=== PATIENT | male | born 1965 | race Caucasian/White ===

== ENCOUNTER → 2016-07-25 | Outpatient (REF) | payer OTHER | LOC: M LABDRAWP 13:10 | PROVIDERS: ATTEND Family Medicine | DX: E03.9 Hypothyroidism, unspecified (principal); E55.9 Vitamin D deficiency, unspecified ==

== ENCOUNTER → 2016-07-25 | Outpatient (REF) | payer OTHER ==
[2016-07-25 14:04] LABS: ALBUMIN 4.4 GM/DL (3.2-5.2); ALBUMIN/GLOBULIN RATIO 1.47 (1.00-1.93); ALKALINE PHOSPHATASE 70 U/L (45-117); ALT/SGPT 46 U/L (12-78); ANION GAP 10 MEQ/L (8-16); AST/SGOT 19 U/L (15-37); BILIRUBIN,TOTAL 0.3 MG/DL (0.2-1.0); BLOOD UREA NITROGEN 17 MG/DL (7-18); CALCIUM LEVEL 9.9 MG/DL (8.5-10.1); CARBON DIOXIDE LEVEL 27 MEQ/L (21-32); CHLORIDE LEVEL 104 MEQ/L (98-107); CREATININE FOR GFR 0.91 MG/DL (0.70-1.30); GLOMERULAR FILTRATION RATE > 60.0 (>60); GLUCOSE, FASTING 84 MG/DL (70-105); POTASSIUM SERUM 4.8 MEQ/L (3.5-5.1); SODIUM LEVEL 141 MEQ/L (136-145); TOTAL PROTEIN 7.4 GM/DL (6.4-8.2)
[2016-07-27 00:06] LABS: %CD3+CD4+CD8+ 0.9 % (Not Estab.); %CD3+CD4+CD8- 27.8 % (Not Estab.); %CD3+CD4-CD8+ 41.9 % (Not Estab.); %CD3+CD4-CD8- 1.2 % (Not Estab.); ABS CD3+CD4+CD8+ 24 /uL (Not Estab.); ABS CD3+CD4+CD8- 751 /uL (Not Estab.); ABS CD3+CD4-CD8+ 1131 /uL (Not Estab.); ABS CD3+CD4-CD8- 32 /uL (Not Estab.); CD4/CD8 NYSDOH RATIO 0.66 (Not Estab.); Eosinophils 2 % (.); HCT 45.3 % (37.5-51.0); HGB 15.4 g/dL (12.6-17.7); Monocytes 12 % (.); Neutrophils 39 % (.)
== END ==
LOC: M SFHCPLAZ 10:48
PROVIDERS: ATTEND Internal Medicine Infectious Disease
DX: B20 Human immunodeficiency virus [HIV] disease (principal)

== ENCOUNTER → 2016-12-28 | Outpatient (REF) | payer BC | LOC: M SFHCPLAZ 11:46 | PROVIDERS: ATTEND Internal Medicine Infectious Disease | DX: B20 Human immunodeficiency virus [HIV] disease (principal); E03.9 Hypothyroidism, unspecified; K90.0 Celiac disease ==

== ENCOUNTER → 2016-12-29 | Outpatient (REF) | payer BC ==
[2016-12-29 16:55] LABS: FOLATE > 24.0 NG/ML; VITAMIN B12 LEVEL 450 PG/ML
[2016-12-29 17:15] LABS: ALBUMIN 4.3 GM/DL (3.2-5.2); ALBUMIN/GLOBULIN RATIO 1.48 (1.00-1.93); ALKALINE PHOSPHATASE 61 U/L (45-117); ALT/SGPT 36 U/L (12-78); ANION GAP 7 MEQ/L (8-16); AST/SGOT 11 U/L (15-37); BILIRUBIN,TOTAL 0.3 MG/DL (0.2-1.0); BLOOD UREA NITROGEN 14 MG/DL (7-18); CALCIUM LEVEL 9.3 MG/DL (8.5-10.1); CARBON DIOXIDE LEVEL 27 MEQ/L (21-32); CHLORIDE LEVEL 107 MEQ/L (98-107); CREATININE FOR GFR 1.01 MG/DL (0.70-1.30); FREE T4 1.12 NG/DL (0.76-1.46); GLOMERULAR FILTRATION RATE > 60.0 (>60); GLUCOSE, FASTING 96 MG/DL (70-105); PERCENT SATURATION 17.3 % (19.7-37.4); POTASSIUM SERUM 4.3 MEQ/L (3.5-5.1); SODIUM LEVEL 141 MEQ/L (136-145); TOTAL IRON BINDING CAPACITY 352 UG/DL (250-450); TOTAL PROTEIN 7.2 GM/DL (6.4-8.2)
[2017-01-01 00:08] LABS: %CD3+CD4+CD8- 34.4 % (Not Estab.); %CD3+CD4-CD8+ 33.9 % (Not Estab.); %CD3+CD4-CD8- 1.5 % (Not Estab.); ABS CD3+CD4+CD8+ 19 /uL (Not Estab.); ABS CD3+CD4+CD8- 654 /uL (Not Estab.); ABS CD3+CD4-CD8+ 644 /uL (Not Estab.); ABS CD3+CD4-CD8- 29 /uL (Not Estab.); CD4/CD8 NYSDOH RATIO 1.01 (Not Estab.); Eosinophils 2 % (.); HCT 45.7 % (37.5-51.0); HGB 14.7 g/dL (12.6-17.7); Monocytes 10 % (.); Neutrophils 40 % (.)
== END ==
LOC: M SFHCPLAZ 14:58
PROVIDERS: ATTEND Internal Medicine Infectious Disease
DX: B20 Human immunodeficiency virus [HIV] disease (principal); E03.9 Hypothyroidism, unspecified; K90.0 Celiac disease

== ENCOUNTER → 2017-07-05 | Outpatient (REF) | payer BC ==
[2017-07-05 12:57] LABS: TOTAL 25(OH) VITAMIN D 33.8 NG/ML (30.0-100.0)
[2017-07-05 13:16] LABS: ALBUMIN 4.2 GM/DL (3.2-5.2); ALKALINE PHOSPHATASE 66 U/L (45-117); ALT/SGPT 50 U/L (12-78); ANION GAP 4 MEQ/L (8-16); AST/SGOT 22 U/L (7-37); BILIRUBIN,TOTAL 0.4 MG/DL (0.2-1.0); BLOOD UREA NITROGEN 16 MG/DL (7-18); CALCIUM LEVEL 9.2 MG/DL (8.5-10.1); CARBON DIOXIDE LEVEL 29 MEQ/L (21-32); CHLORIDE LEVEL 105 MEQ/L (98-107); CREATININE FOR GFR 0.83 MG/DL (0.70-1.30); FREE T4 0.73 NG/DL (0.76-1.46); GLOMERULAR FILTRATION RATE > 60.0 (>56); GLUCOSE, FASTING 80 MG/DL (70-105); POTASSIUM SERUM 4.4 MEQ/L (3.5-5.1); SODIUM LEVEL 138 MEQ/L (136-145)
[2017-07-05 14:14] LABS: CHLAMYDIA DNA AMPLIFICATION NEGATIVE (NEGATIVE); GC DNA AMPLIFICATION NEGATIVE (NEGATIVE)
[2017-07-07 14:09] LABS: QUANTIFERON GOLD TB Negative (Negative); TB Test (QFT) Antigen 0.08 IU/mL (.); TB Test (QFT) Antigen Minus Ni <0.01 IU/mL (.); TB Test (QFT) Mitogen >10.00 IU/mL (.); TB Test (QFT) Nil 0.09 IU/mL (.)
[2017-07-10 00:07] LABS: % CD8 Pos Lymph 37.7 % (12.0-35.5); %CD4 Pos Lymphs 32.4 % (30.8-58.5); ABS Eosinophils 0.1 x10E3/uL (0.0-0.4); ABS Lymphs 2.2 x10E3/uL (0.7-3.1); ABS Monocytes 0.5 x10E3/uL (0.1-0.9); ABS Neutophils 2.2 x10E3/uL (1.4-7.0); Abs CD4 Helper 713 /uL (359-1519); Abs CD8 Suppres 829 /uL (109-897); CD4/CD8 Ratio 0.86 (0.92-3.72); Eosinophils 2 % (Not Estab.); HCT 43.6 % (37.5-51.0); HGB 15.5 g/dL (13.0-17.7); HIV-1 RNA PCR QUANT 2 LC550285 30 copies/mL (.); HIV-1 RNA PCR QUANT 3 LC550285 1.477 (.); Immature Grans 0 % (Not Estab.); Lymphocytes 44 % (Not Estab.); MCH 32.9 pg (26.6-33.0); MCHC 35.6 g/dL (31.5-35.7); MCV 93 fL (79-97); Monocytes 10 % (Not Estab.); Neutrophils 44 % (Not Estab.); Platelets 236 x10E3/uL (150-379); RBC 4.71 x10E6/uL (4.14-5.80); RDW 13.9 % (12.3-15.4)
== END ==
LOC: M SFHCPLAZ 09:06
DX: B20 Human immunodeficiency virus [HIV] disease (principal); E03.9 Hypothyroidism, unspecified; E55.9 Vitamin D deficiency, unspecified
CPT/HCPCS: 84443

== ENCOUNTER → 2018-01-17 | Outpatient (REF) | payer BC ==
[2018-01-17 13:55] LABS: ALBUMIN 4.4 GM/DL (3.2-5.2); ALBUMIN/GLOBULIN RATIO 1.33 (1.00-1.93); ALKALINE PHOSPHATASE 72 U/L (45-117); ALT/SGPT 102 U/L (12-78); ANION GAP 8 MEQ/L (8-16); AST/SGOT 40 U/L (7-37); BILIRUBIN,TOTAL 0.3 MG/DL (0.2-1.0); BLOOD UREA NITROGEN 17 MG/DL (7-18); CALCIUM LEVEL 9.7 MG/DL (8.5-10.1); CARBON DIOXIDE LEVEL 29 MEQ/L (21-32); CHLORIDE LEVEL 104 MEQ/L (98-107); CREATININE FOR GFR 0.88 MG/DL (0.70-1.30); FREE T4 0.73 NG/DL (0.76-1.46); GLOMERULAR FILTRATION RATE > 60.0 (>56); GLUCOSE, FASTING 85 MG/DL (70-100); POTASSIUM SERUM 4.8 MEQ/L (3.5-5.1); SODIUM LEVEL 141 MEQ/L (136-145); TOTAL PROTEIN 7.7 GM/DL (6.4-8.2)
== END ==
LOC: M SFHCPLAZ 11:04
DX: B20 Human immunodeficiency virus [HIV] disease (principal); E03.9 Hypothyroidism, unspecified

== ENCOUNTER → 2018-07-30 | Outpatient (REF) | payer BC ==
[2018-07-30 14:36] LABS: APPEARANCE, URINE CLEAR (CLEAR); BACTERIA, URINE AUTO NEGATIVE (NEGATIVE); BILIRUBIN, URINE AUTO NEGATIVE (NEGATIVE); BLOOD, URINE BLOOD NEGATIVE (NEGATIVE); COLOR, URINE YELLOW (YELLOW); GLUCOSE, URINE (UA) AUTO NEGATIVE (NEGATIVE); KETONE, URINE AUTO NEGATIVE (NEGATIVE); LEUKOCYTE ESTERASE, URINE AUTO NEGATIVE (NEGATIVE); NITRITE, URINE AUTO NEGATIVE (NEGATIVE); PROTEIN, URINE AUTO NEGATIVE (NEGATIVE); RBC, URINE AUTO 2 /HPF (0-3); SPECIFIC GRAVITY URINE AUTO 1.019 (1.002-1.035); SQUAMOUS EPITHELIAL CELL UR AU 0 /HPF (0-6); UROBILINOGEN, URINE AUTO 0.2 mg/dL (0.0-2.0); WBC, URINE AUTO 0 /HPF (0-3)
[2018-07-30 14:58] LABS: ALBUMIN 3.9 GM/DL (3.2-5.2); ALT/SGPT 59 U/L (12-78); BILIRUBIN,TOTAL 0.3 MG/DL (0.2-1.0); BLOOD UREA NITROGEN 21 MG/DL (7-18); CALCIUM LEVEL 9.1 MG/DL (8.5-10.1); CARBON DIOXIDE LEVEL 26 MEQ/L (21-32); CHLORIDE LEVEL 110 MEQ/L (98-107); CREATININE FOR GFR 0.87 MG/DL (0.70-1.30); FREE T4 0.77 NG/DL (0.76-1.46); GLOMERULAR FILTRATION RATE > 60.0 (>56); GLUCOSE, FASTING 66 MG/DL (70-100); SODIUM LEVEL 143 MEQ/L (136-145); TOTAL PROTEIN 6.3 GM/DL (6.4-8.2)
[2018-07-30 16:11] LABS: CHLAMYDIA DNA AMPLIFICATION NEGATIVE (NEGATIVE); GC DNA AMPLIFICATION NEGATIVE (NEGATIVE)
[2018-07-31 14:53] LABS: % CD8 Pos Lymph 38.2 % (12.0-35.5); ABS Eosinophils 0.1 x10E3/uL (0.0-0.4); ABS Lymphs 2.6 x10E3/uL (0.7-3.1); ABS Monocytes 0.6 x10E3/uL (0.1-0.9); ABS Neutophils 1.5 x10E3/uL (1.4-7.0); Abs CD4 Helper 780 /uL (359-1519); Abs CD8 Suppres 993 /uL (109-897); CD4/CD8 Ratio 0.79 (0.92-3.72); Eosinophils 3 % (Not Estab.); HCT 42.1 % (37.5-51.0); HGB 14.1 g/dL (13.0-17.7); Immature Grans 0 % (Not Estab.); Lymphocytes 53 % (Not Estab.); MCH 32.1 pg (26.6-33.0); MCHC 33.5 g/dL (31.5-35.7); MCV 96 fL (79-97); Monocytes 12 % (Not Estab.); Neutrophils 31 % (Not Estab.); Platelets 231 x10E3/uL (150-379); RBC 4.39 x10E6/uL (4.14-5.80); RDW 14.2 % (12.3-15.4); WBC 4.9 x10E3/uL (3.4-10.8)
[2018-08-02 00:07] LABS: HIV-1 RNA PCR QUANT 2 LC550285 <20 copies/mL (.)
== END ==
LOC: M SFHCPLAZ 10:28
PROVIDERS: ATTEND Internal Medicine Infectious Disease
DX: B20 Human immunodeficiency virus [HIV] disease (principal); E03.9 Hypothyroidism, unspecified

== ENCOUNTER → 2018-12-03 | Outpatient (REF) | payer BC ==
[2018-12-03 13:04] LABS: ALBUMIN 4.2 GM/DL (3.2-5.2); ALT/SGPT 65 U/L (12-78); BILIRUBIN,TOTAL 0.3 MG/DL (0.2-1.0); BLOOD UREA NITROGEN 12 MG/DL (7-18); CALCIUM LEVEL 9.8 MG/DL (8.5-10.1); CARBON DIOXIDE LEVEL 28 MEQ/L (21-32); CHLORIDE LEVEL 108 MEQ/L (98-107); CHOLESTEROL LEVEL 272 MG/DL (<200); CHOLESTEROL RISK RATIO 6.974 (<5); CREATININE FOR GFR 0.96 MG/DL (0.70-1.30); FREE T4 0.77 NG/DL (0.76-1.46); GLOMERULAR FILTRATION RATE > 60.0 (>56); GLUCOSE, FASTING 92 MG/DL (70-100); HDL CHOLESTEROL 39 MG/DL (>40); LDL CHOLESTEROL 178 MG/DL (<100); NON-HDL-C 233 MG/DL; POTASSIUM SERUM 4.8 MEQ/L (3.5-5.1); SODIUM LEVEL 142 MEQ/L (136-145); TRIGLYCERIDES LEVEL 277 MG/DL (<150)
[2018-12-06 00:09] LABS: % CD8 Pos Lymph 36.7 % (12.0-35.5); ABS Eosinophils 0.2 x10E3/uL (0.0-0.4); ABS Lymphs 2.4 x10E3/uL (0.7-3.1); ABS Monocytes 0.5 x10E3/uL (0.1-0.9); ABS Neutophils 1.7 x10E3/uL (1.4-7.0); Abs CD4 Helper 744 /uL (359-1519); Abs CD8 Suppres 881 /uL (109-897); CD4/CD8 Ratio 0.84 (0.92-3.72); Eosinophils 4 % (Not Estab.); HCT 43.9 % (37.5-51.0); HIV-1 RNA PCR QUANT 2 LC550285 <20 copies/mL (.); Immature Grans 0 % (Not Estab.); Lymphocytes 50 % (Not Estab.); MCH 32.1 pg (26.6-33.0); MCHC 34.2 g/dL (31.5-35.7); MCV 94 fL (79-97); Monocytes 10 % (Not Estab.); Neutrophils 35 % (Not Estab.); Platelets 205 x10E3/uL (150-450); RBC 4.67 x10E6/uL (4.14-5.80); RDW 14.4 % (12.3-15.4); WBC 4.7 x10E3/uL (3.4-10.8)
== END ==
LOC: M SFHCPLAZ 09:18
PROVIDERS: ATTEND Internal Medicine Infectious Disease
DX: B20 Human immunodeficiency virus [HIV] disease (principal); E03.9 Hypothyroidism, unspecified; E78.00 Pure hypercholesterolemia, unspecified

== ENCOUNTER → 2019-04-10 | Outpatient (REF) | payer BC ==
[2019-04-10 13:19] LABS: ALT/SGPT 47 U/L (12-78); BILIRUBIN,TOTAL 0.3 MG/DL (0.2-1.0); BLOOD UREA NITROGEN 16 MG/DL (7-18); CALCIUM LEVEL 9.1 MG/DL (8.5-10.1); CARBON DIOXIDE LEVEL 26 MEQ/L (21-32); CHLORIDE LEVEL 112 MEQ/L (98-107); CHOLESTEROL LEVEL 157 MG/DL (<200); CHOLESTEROL RISK RATIO 3.738 (<5); CREATININE FOR GFR 0.89 MG/DL (0.70-1.30); FREE T4 0.95 NG/DL (0.76-1.46); GLOMERULAR FILTRATION RATE > 60.0 (>56); GLUCOSE, FASTING 91 MG/DL (70-100); HDL CHOLESTEROL 42 MG/DL (>40); IMMUNOGLOBULIN E 6.5 IU/ML (<100); IMMUNOGLOBULIN G 764 MG/DL (681-1648); LDL CHOLESTEROL 85 MG/DL (<100); NON-HDL-C 115 MG/DL; POTASSIUM SERUM 5.2 MEQ/L (3.5-5.1); SODIUM LEVEL 142 MEQ/L (136-145); TOTAL 25(OH) VITAMIN D 33.7 NG/ML (30.0-100.0); TOTAL PROTEIN 6.8 GM/DL (6.4-8.2); TRIGLYCERIDES LEVEL 152 MG/DL (<150)
[2019-04-16 00:07] LABS: % CD8 Pos Lymph 36.6 % (12.0-35.5); %CD4 Pos Lymphs 30.5 % (30.8-58.5); ABS Eosinophils 0.2 x10E3/uL (0.0-0.4); ABS Lymphs 2.9 x10E3/uL (0.7-3.1); ABS Monocytes 0.5 x10E3/uL (0.1-0.9); ABS Neutophils 1.7 x10E3/uL (1.4-7.0); Abs CD4 Helper 885 /uL (359-1519); Abs CD8 Suppres 1061 /uL (109-897); CD4/CD8 Ratio 0.83 (0.92-3.72); Eosinophils 4 % (Not Estab.); HCT 41.7 % (37.5-51.0); HGB 14.1 g/dL (13.0-17.7); HIV-1 RNA PCR QUANT 2 LC550285 <20 copies/mL (.); Immature Grans 0 % (Not Estab.); Lymphocytes 54 % (Not Estab.); MCH 31.8 pg (26.6-33.0); MCHC 33.8 g/dL (31.5-35.7); MCV 94 fL (79-97); Monocytes 10 % (Not Estab.); Neutrophils 32 % (Not Estab.); Platelets 201 x10E3/uL (150-450); RBC 4.43 x10E6/uL (4.14-5.80); RDW 13.8 % (12.3-15.4); WBC 5.3 x10E3/uL (3.4-10.8)
== END ==
LOC: M SFHCPLAZ 09:21
PROVIDERS: ATTEND Internal Medicine Infectious Disease
DX: B20 Human immunodeficiency virus [HIV] disease (principal); E55.9 Vitamin D deficiency, unspecified; J32.9 Chronic sinusitis, unspecified; E03.9 Hypothyroidism, unspecified; E78.00 Pure hypercholesterolemia, unspecified

== ENCOUNTER → 2019-08-12 | Outpatient (REF) | payer BC ==
[2019-08-12 14:01] LABS: ALBUMIN 4.8 GM/DL (3.2-5.2); ALT/SGPT 69 U/L (12-78); BILIRUBIN,TOTAL 0.5 MG/DL (0.2-1.0); BLOOD UREA NITROGEN 21 MG/DL (7-18); CALCIUM LEVEL 9.8 MG/DL (8.5-10.1); CARBON DIOXIDE LEVEL 31 MEQ/L (21-32); CHLORIDE LEVEL 105 MEQ/L (98-107); CREATININE FOR GFR 0.97 MG/DL (0.70-1.30); FREE T4 1.05 NG/DL (0.76-1.46); GLOMERULAR FILTRATION RATE > 60.0 (>56); GLUCOSE, FASTING 90 MG/DL (70-100); POTASSIUM SERUM 4.6 MEQ/L (3.5-5.1); SODIUM LEVEL 141 MEQ/L (136-145); TOTAL PROTEIN 7.4 GM/DL (6.4-8.2)
== END ==
LOC: M SFHCPLAZ 11:29
PROVIDERS: ATTEND Internal Medicine Infectious Disease
DX: B20 Human immunodeficiency virus [HIV] disease (principal); E03.9 Hypothyroidism, unspecified

== ENCOUNTER → 2019-12-02 | Outpatient (REF) | payer BC ==
[2019-12-02 11:59] LABS: APPEARANCE, URINE CLEAR (CLEAR); BACTERIA, URINE AUTO NEGATIVE (NEGATIVE); BILIRUBIN, URINE AUTO NEGATIVE (NEGATIVE); BLOOD, URINE BLOOD NEGATIVE (NEGATIVE); COLOR, URINE STRAW (YELLOW); GLUCOSE, URINE (UA) AUTO NEGATIVE (NEGATIVE); KETONE, URINE AUTO NEGATIVE (NEGATIVE); LEUKOCYTE ESTERASE, URINE AUTO NEGATIVE (NEGATIVE); NITRITE, URINE AUTO NEGATIVE (NEGATIVE); PROTEIN, URINE AUTO NEGATIVE (NEGATIVE); RBC, URINE AUTO 0 /HPF (0-3); SPECIFIC GRAVITY URINE AUTO 1.013 (1.002-1.035); SQUAMOUS EPITHELIAL CELL UR AU 0 /HPF (0-6); UROBILINOGEN, URINE AUTO 0.2 mg/dL (0.0-2.0); WBC, URINE AUTO 0 /HPF (0-3)
[2019-12-02 12:53] LABS: ALBUMIN 4.3 GM/DL (3.2-5.2); ALT/SGPT 59 U/L (12-78); BILIRUBIN,TOTAL 0.4 MG/DL (0.2-1.0); BLOOD UREA NITROGEN 11 MG/DL (7-18); CALCIUM LEVEL 9.5 MG/DL (8.5-10.1); CARBON DIOXIDE LEVEL 29 MEQ/L (21-32); CHLORIDE LEVEL 107 MEQ/L (98-107); CREATININE FOR GFR 0.88 MG/DL (0.70-1.30); FREE T4 1.15 NG/DL (0.76-1.46); GLOMERULAR FILTRATION RATE > 60.0 (>56); GLUCOSE, FASTING 74 MG/DL (70-100); POTASSIUM SERUM 4.8 MEQ/L (3.5-5.1); SODIUM LEVEL 140 MEQ/L (136-145); THYROID STIMULATING HORMONE 0.972 uIU/ML (0.358-3.740); TOTAL PROTEIN 6.9 GM/DL (6.4-8.2)
[2019-12-03 14:11] LABS: %CD4 Pos Lymphs 32.7 % (30.8-58.5); ABS Eosinophils 0.1 x10E3/uL (0.0-0.4); ABS Lymphs 2.5 x10E3/uL (0.7-3.1); ABS Monocytes 0.5 x10E3/uL (0.1-0.9); ABS Neutophils 1.9 x10E3/uL (1.4-7.0); Abs CD4 Helper 818 /uL (359-1519); Abs CD8 Suppres 925 /uL (109-897); CD4/CD8 Ratio 0.88 (0.92-3.72); Eosinophils 3 % (Not Estab.); HCT 46.2 % (37.5-51.0); HGB 15.8 g/dL (13.0-17.7); Immature Grans 0 % (Not Estab.); Lymphocytes 48 % (Not Estab.); MCHC 34.2 g/dL (31.5-35.7); MCV 94 fL (79-97); Monocytes 10 % (Not Estab.); Neutrophils 38 % (Not Estab.); Platelets 253 x10E3/uL (150-450); RBC 4.94 x10E6/uL (4.14-5.80); RDW 13.1 % (11.6-15.4)
[2019-12-04 16:08] LABS: HIV-1 RNA PCR QUANT 2 LC550285 <20 copies/mL (.)
== END ==
LOC: M SFHCPLAZ 10:06
PROVIDERS: ATTEND Internal Medicine Infectious Disease
DX: B20 Human immunodeficiency virus [HIV] disease (principal); E03.9 Hypothyroidism, unspecified

== ENCOUNTER → 2020-06-07 | Outpatient (REF) | payer BC ==
[2020-06-07 14:20] LABS: ALBUMIN 4.1 GM/DL (3.2-5.2); ALT/SGPT 56 U/L (12-78); BILIRUBIN,TOTAL 0.3 MG/DL (0.2-1.0); BLOOD UREA NITROGEN 13 MG/DL (7-18); CALCIUM LEVEL 9.3 MG/DL (8.5-10.1); CARBON DIOXIDE LEVEL 28 MEQ/L (21-32); CHLORIDE LEVEL 107 MEQ/L (98-107); CREATININE FOR GFR 0.99 MG/DL (0.70-1.30); FREE T4 0.97 NG/DL (0.76-1.46); GLOMERULAR FILTRATION RATE > 60.0 (>56); GLUCOSE, FASTING 86 MG/DL (70-100); POTASSIUM SERUM 4.4 MEQ/L (3.5-5.1); SODIUM LEVEL 141 MEQ/L (136-145)
[2020-06-09 12:08] LABS: % CD8 Pos Lymph 35.6 % (12.0-35.5); %CD4 Pos Lymphs 33.8 % (30.8-58.5); ABS Eosinophils 0.2 x10E3/uL (0.0-0.4); ABS Lymphs 2.9 x10E3/uL (0.7-3.1); ABS Monocytes 0.6 x10E3/uL (0.1-0.9); ABS Neutophils 2.4 x10E3/uL (1.4-7.0); Abs CD4 Helper 980 /uL (359-1519); Abs CD8 Suppres 1032 /uL (109-897); CD4/CD8 Ratio 0.95 (0.92-3.72); Eosinophils 3 % (Not Estab.); HCT 44.5 % (37.5-51.0); HGB 14.9 g/dL (13.0-17.7); HIV-1 RNA PCR QUANT 2 LC550285 20 copies/mL (.); HIV-1 RNA PCR QUANT 3 LC550285 1.301 (.); Immature Grans 1 % (Not Estab.); Lymphocytes 47 % (Not Estab.); MCH 31.7 pg (26.6-33.0); MCHC 33.5 g/dL (31.5-35.7); MCV 95 fL (79-97); Monocytes 9 % (Not Estab.); Neutrophils 39 % (Not Estab.); Platelets 273 x10E3/uL (150-450); WBC 6.1 x10E3/uL (3.4-10.8)
== END ==
LOC: M SFHCPLAZ 10:00
PROVIDERS: ATTEND Internal Medicine Infectious Disease
DX: E03.9 Hypothyroidism, unspecified (principal); B20 Human immunodeficiency virus [HIV] disease

== ENCOUNTER → 2020-11-23 | Outpatient (REF) | payer BC ==
[2020-11-23 16:12] LABS: ALBUMIN 4.4 GM/DL (3.2-5.2); ALT/SGPT 53 U/L (12-78); BILIRUBIN,TOTAL 0.6 MG/DL (0.2-1.0); BLOOD UREA NITROGEN 11 MG/DL (7-18); CALCIUM LEVEL 9.5 MG/DL (8.5-10.1); CARBON DIOXIDE LEVEL 26 MEQ/L (21-32); CHLORIDE LEVEL 107 MEQ/L (98-107); GLOMERULAR FILTRATION RATE > 60.0 (>56); GLUCOSE, FASTING 95 MG/DL (70-100); POTASSIUM SERUM 4.6 MEQ/L (3.5-5.1); SODIUM LEVEL 139 MEQ/L (136-145); TOTAL PROTEIN 7.3 GM/DL (6.4-8.2)
== END ==
LOC: M SFHCPLAZ 11:59
PROVIDERS: ATTEND Internal Medicine Infectious Disease
DX: B20 Human immunodeficiency virus [HIV] disease (principal); E03.9 Hypothyroidism, unspecified

== ENCOUNTER → 2021-01-31 | Outpatient (CLI) | payer BC ==
[~2021-01-31] MED LIST: ATOR1TAB21 PO; HUMI40IN2 SC; IBUP80TA PO; LEVO137T2 PO; QC A650T3 PO; VALA1TAB5 PO
== END ==
LOC: M LABSMTC 12:05
PROVIDERS: ATTEND Anesthesiology
DX: Z01.812 Encounter for preprocedural laboratory examination (principal); Z20.828 Contact with and (suspected) exposure to other viral communicable diseases

== ENCOUNTER 2021-02-04 12:25 | Day surgery (SDC) | payer BC ==
[~2021-02-04] VITALS: Ht 175.3 cm; Wt 97.5 kg
[~2021-02-04 12:25] MED LIST changes: +NS 1,000 ML IV ONE
[2021-02-04] MEDS ORDERED: propofoL 200 MG/20 ML VIAL As Ordered ONE (13:38)
[2021-02-04] MEDS ORDERED: LIDOCAINE 2% 100MG/5ML SDV (FOR ANES.) As Ordered ONE (13:43)
[2021-02-04] MEDS ORDERED: fentaNYL 100 MCG/2 ML INJECTION As Ordered ONE (13:43)
[2021-02-04] MEDS ORDERED: ePHEDrine SULFATE 25 MG/5 ML(5MG/ML) SYRINGE As Ordered ONE (13:46)
[2021-02-04 14:50] VITALS: BP 141/89
== END 2021-02-04 15:01 | disposition home or self-care (01) ==
LOC: M OPP 12:25
PROVIDERS: ATTEND Internal Medicine Gastroenterology
DX: Q39.6 Congenital diverticulum of esophagus (principal); K22.70 Barrett's esophagus without dysplasia; K29.70 Gastritis, unspecified, without bleeding; R12 Heartburn; Z79.899 Other long term (current) drug therapy; Z88.1 Allergy status to other antibiotic agents
CPT/HCPCS: 43239; 88305; J3010

== ENCOUNTER → 2021-03-29 | Outpatient (CLI) | payer BC ==
[~2021-03-29] MED LIST changes: +E-Z-GAS II EFFERVESCENT PACKET (SODIUM BICARB./CITRIC ACID/SIMETHICONE) As Ordered ONE; +E-Z-HD 98% w/w 340GM SUSP BTL As Ordered ONE; +E-Z-PAQUE 96% w/w SUSP 176GM BTL As Ordered ONE; -NS 1,000 ML IV ONE
--- NOTE | 2021-03-29 17:43 | REP ---
INDICATION: DIVERTICULUM OF ESOPHAGUS, ACQUIRED. COMPARISON: None TECHNIQUE: This procedure was performed by Rani Sierra, [facility], under the direct supervision of Dr. Massey. Images were reviewed with Dr. Massey prior to dictation. Liquid barium and gas producing crystals were given in the erect position, as well as liquid barium in the prone oblique position in order to perform a double contrast esophagram examination. FINDINGS: A single view PA chest x-ray is submitted as a redevelopment manager film. The superior mediastinal structures are midline. The heart size is within normal limits. The lungs are clear. The oral and pharyngeal stages of deglutition were unremarkable. 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 This diverticulum measures roughly 10 mm. Esophageal transport is prompt and efficient and there is no evidence of esophagitis, stricture, or mucosal ring. There is no evidence of a hiatal hernia. No gastroesophageal reflux was visualized. 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 0.4 minutes of fluoroscopy time was utilized for this procedure. Some fluoroscopic images are performed with last image hold technology. These images require no additional radiation. <Electronically signed by Rani Sierra > 03/29/21 1629 <Electronically signed by Adalberto Massey > 03/29/21 [id number]
== END ==
LOC: M RAD 08:49
PROVIDERS: ATTEND Internal Medicine Gastroenterology
DX: K22.5 Diverticulum of esophagus, acquired (principal)

== ENCOUNTER → 2021-06-07 | Outpatient (CLI) | payer BC ==
[~2021-06-07] MED LIST changes: -E-Z-GAS II EFFERVESCENT PACKET (SODIUM BICARB./CITRIC ACID/SIMETHICONE) As Ordered ONE; -E-Z-HD 98% w/w 340GM SUSP BTL As Ordered ONE; -E-Z-PAQUE 96% w/w SUSP 176GM BTL As Ordered ONE
[2021-06-07 13:36] LABS: ALBUMIN 3.9 GM/DL (3.2-5.2); ALT/SGPT 60 U/L (12-78); BILIRUBIN,TOTAL 0.4 MG/DL (0.2-1.0); BLOOD UREA NITROGEN 13 MG/DL (7-18); CALCIUM LEVEL 9.4 MG/DL (8.5-10.1); CARBON DIOXIDE LEVEL 29 MEQ/L (21-32); CHLORIDE LEVEL 110 MEQ/L (98-107); CREATININE FOR GFR 0.99 MG/DL (0.70-1.30); GLOMERULAR FILTRATION RATE > 60.0 (>56); GLUCOSE, FASTING 86 MG/DL (70-100); SODIUM LEVEL 142 MEQ/L (136-145)
== END ==
LOC: M PLALAB 11:32
PROVIDERS: ATTEND Internal Medicine Infectious Disease
DX: B20 Human immunodeficiency virus [HIV] disease (principal); E55.9 Vitamin D deficiency, unspecified

== ENCOUNTER → 2022-01-10 | Outpatient (CLI) | payer BC ==
[2022-01-10 17:39] LABS: ALBUMIN 3.9 GM/DL (3.2-5.2); ALT/SGPT 52 U/L (12-78); BILIRUBIN,TOTAL 0.7 MG/DL (0.2-1.0); BLOOD UREA NITROGEN 18 MG/DL (7-18); CALCIUM LEVEL 8.4 MG/DL (8.5-10.1); CARBON DIOXIDE LEVEL 26 MEQ/L (21-32); CHLORIDE LEVEL 110 MEQ/L (98-107); CHOLESTEROL LEVEL 121 MG/DL (<200); CHOLESTEROL RISK RATIO 3.558 (<5); CREATININE FOR GFR 1.06 MG/DL (0.70-1.30); GLOMERULAR FILTRATION RATE > 60.0 (>56); GLUCOSE, FASTING 100 MG/DL (70-100); HDL CHOLESTEROL 34 MG/DL (>40); LDL CHOLESTEROL 52 MG/DL (<100); NON-HDL-C 87 MG/DL; POTASSIUM SERUM 4.3 MEQ/L (3.5-5.1); SODIUM LEVEL 140 MEQ/L (136-145); TOTAL PROTEIN 6.6 GM/DL (6.4-8.2); TRIGLYCERIDES LEVEL 174 MG/DL (<150)
== END ==
LOC: M PLALAB 12:15
PROVIDERS: ATTEND Internal Medicine Infectious Disease
DX: B20 Human immunodeficiency virus [HIV] disease (principal)

== ENCOUNTER → 2023-01-03 | Outpatient (CLI) | payer BC ==
[2023-01-03 18:23] LABS: ALBUMIN 4.2 G/DL (3.2-5.2); ALKALINE PHOSPHATASE 110 U/L (46-116); ALT/SGPT 60 U/L (7.0-40); AST/SGOT 27 U/L (<34); BILIRUBIN,TOTAL 0.4 MG/DL (0.3-1.2); BLOOD UREA NITROGEN 13 MG/DL (9-23); CALCIUM LEVEL 9.6 MG/DL (8.5-10.1); CARBON DIOXIDE LEVEL 25 MMOL/L (20-31); CHLORIDE LEVEL 106 MMOL/L (98-107); CREATININE FOR GFR 0.92 MG/DL (0.70-1.30); GLOMERULAR FILTRATION RATE > 60.0 (>56); GLUCOSE, FASTING 83 MG/DL (60-100); POTASSIUM SERUM 4.1 MMOL/L (3.5-5.1); SODIUM LEVEL 139 MMOL/L (136-145); TOTAL PROTEIN 6.7 G/DL (5.7-8.2)
[2023-01-06 04:09] LABS: % CD8 Pos Lymph 33.6 % (12.0-35.5); %CD4 Pos Lymphs 33.9 % (30.8-58.5); ABS Eosinophils 0.1 x10E3/uL (0.0-0.4); ABS Lymphs 2.8 x10E3/uL (0.7-3.1); ABS Monocytes 0.6 x10E3/uL (0.1-0.9); ABS Neutophils 2.5 x10E3/uL (1.4-7.0); Abs CD4 Helper 949 /uL (359-1519); Abs CD8 Suppres 941 /uL (109-897); CD4/CD8 Ratio 1.01 (0.92-3.72); Eosinophils 2 % (Not Estab.); HCT 46.5 % (37.5-51.0); HGB 15.8 g/dL (13.0-17.7); HIV-1 RNA PCR QUANT 2 LC550285 50 copies/mL (.); HIV-1 RNA PCR QUANT 3 LC550285 1.699 (.); Immature Grans 1 % (Not Estab.); Lymphocytes 45 % (Not Estab.); MCH 31.7 pg (26.6-33.0); MCV 93 fL (79-97); Monocytes 10 % (Not Estab.); Neutrophils 41 % (Not Estab.); Platelets 279 x10E3/uL (150-450); RBC 4.99 x10E6/uL (4.14-5.80); RDW 13.4 % (11.6-15.4); WBC 6.1 x10E3/uL (3.4-10.8)
== END ==
LOC: M PLALAB 16:55
PROVIDERS: ATTEND Internal Medicine Infectious Disease
DX: B20 Human immunodeficiency virus [HIV] disease (principal)

== ENCOUNTER → 2023-01-09 | Outpatient (CLI) | payer BC ==
[2023-01-09 18:38] LABS: CHOLESTEROL RISK RATIO 3.78 (<5); LDL CHOLESTEROL 97.2 MG/DL (<100); THYROID STIMULATING HORMONE 5.813 uIU/ML (0.55-4.78)
[2023-01-09 18:39] LABS: TOTAL 25(OH) VITAMIN D 37.1 NG/ML (20.0-100.0)
== END ==
LOC: M PLALAB 14:18
PROVIDERS: ATTEND Internal Medicine Infectious Disease
DX: E55.9 Vitamin D deficiency, unspecified (principal); L02.429 Furuncle of limb, unspecified; E78.2 Mixed hyperlipidemia; E03.9 Hypothyroidism, unspecified

== ENCOUNTER → 2023-07-17 | Outpatient (CLI) | payer BC ==
[2023-07-17 19:53] LABS: BASO % 0.3 % (0.0-1.0); EOS # 0.1 10^3/uL (0.0-0.5); EOS % 0.7 % (0.0-3.0); HEMATOCRIT 44.6 % (42.0-52.0); HEMOGLOBIN 15.1 g/dl (13.5-17.5); LYMPH # 2.5 10^3/uL (1.5-5.0); LYMPH % 18.8 % (24.0-44.0); MEAN CORPUSCULAR HEMOGLOBIN 31.5 pg (27.0-33.0); MEAN CORPUSCULAR HGB CONC 33.9 g/dl (32.0-36.5); MEAN CORPUSCULAR VOLUME 93.1 fl (80.0-96.0); MONO # 0.9 10^3/uL (0.0-0.8); MONO % 6.9 % (2.0-8.0); NEUTROPHILS # 9.6 10^3/uL (1.5-8.5); PLATELET COUNT, AUTOMATED 258 10^3/uL (150-450); RED BLOOD COUNT 4.79 10^6/uL (4.30-6.10); WHITE BLOOD COUNT 13.1 10^3/uL (4.0-10.0)
[2023-07-17 20:05] LABS: HEMOGLOBIN A1c 5.1 % (4.0-6.0)
[2023-07-17 20:23] LABS: PSA SCREENING 0.28 NG/ML (< 4.00)
[2023-07-17 20:24] LABS: ALBUMIN 4.1 G/DL (3.2-5.2); ALKALINE PHOSPHATASE 85 U/L (46-116); ALT/SGPT 51 U/L (7.0-40); AST/SGOT 26 U/L (<34); BILIRUBIN,TOTAL 0.8 MG/DL (0.3-1.2); BLOOD UREA NITROGEN 15 MG/DL (9-23); CARBON DIOXIDE LEVEL 27 MMOL/L (20-31); CHLORIDE LEVEL 110 MMOL/L (98-107); CREATININE FOR GFR 1.02 MG/DL (0.70-1.30); GLOMERULAR FILTRATION RATE > 60.0 (>56); GLUCOSE, FASTING 102 MG/DL (60-100); POTASSIUM SERUM 4.2 MMOL/L (3.5-5.1); SODIUM LEVEL 142 MMOL/L (136-145); TOTAL PROTEIN 6.6 G/DL (5.7-8.2)
[2023-07-17 20:26] LABS: THYROID STIMULATING HORMONE 1.624 uIU/ML (0.55-4.78)
[2023-07-17 20:27] LABS: FREE T4 1.04 NG/DL (0.89-1.76)
== END ==
LOC: M LAB 19:11
PROVIDERS: ATTEND Physician Assistant
DX: I10 Essential (primary) hypertension (principal); Z12.5 Encounter for screening for malignant neoplasm of prostate; Z13.1 Encounter for screening for diabetes mellitus
CPT/HCPCS: 36415; 80053; 83036; 84439; 84443; 85025; G0103

== ENCOUNTER → 2023-07-24 | Outpatient (CLI) | payer BC ==
[2023-07-27 03:07] LABS: % CD8 Pos Lymph 34.5 % (12.0-35.5); %CD4 Pos Lymphs 34.1 % (30.8-58.5); ABS Eosinophils 0.1 x10E3/uL (0.0-0.4); ABS Lymphs 2.6 x10E3/uL (0.7-3.1); ABS Monocytes 0.5 x10E3/uL (0.1-0.9); ABS Neutophils 3.5 x10E3/uL (1.4-7.0); Abs CD4 Helper 887 /uL (359-1519); Abs CD8 Suppres 897 /uL (109-897); CD4/CD8 Ratio 0.99 (0.92-3.72); Eosinophils 2 % (Not Estab.); HCT 47.1 % (37.5-51.0); HGB 15.4 g/dL (13.0-17.7); HIV-1 RNA PCR QUANT 2 LC550285 <20 copies/mL (.); Immature Grans 0 % (Not Estab.); Lymphocytes 39 % (Not Estab.); MCH 30.4 pg (26.6-33.0); MCHC 32.7 g/dL (31.5-35.7); MCV 93 fL (79-97); Monocytes 8 % (Not Estab.); Neutrophils 50 % (Not Estab.); Platelets 303 x10E3/uL (150-450); RBC 5.07 x10E6/uL (4.14-5.80); WBC 6.9 x10E3/uL (3.4-10.8)
== END ==
LOC: M PLALAB 15:08
PROVIDERS: ATTEND Internal Medicine Infectious Disease
DX: B20 Human immunodeficiency virus [HIV] disease (principal); L02.91 Cutaneous abscess, unspecified; R19.7 Diarrhea, unspecified

== ENCOUNTER → 2024-02-15 | Outpatient (CLI) | payer BC ==
[2024-02-15 18:08] LABS: ALBUMIN 4.2 G/DL (3.2-5.2); ALKALINE PHOSPHATASE 105 U/L (46-116); ALT/SGPT 47 U/L (7.0-40); AST/SGOT 32 U/L (<34); BILIRUBIN,TOTAL 0.6 MG/DL (0.3-1.2); BLOOD UREA NITROGEN 12 MG/DL (9-23); CALCIUM LEVEL 9.7 MG/DL (8.5-10.1); CARBON DIOXIDE LEVEL 29 MMOL/L (20-31); CHLORIDE LEVEL 108 MMOL/L (98-107); CREATININE FOR GFR 1.08 MG/DL (0.70-1.30); GLOMERULAR FILTRATION RATE > 60.0 (>56); GLUCOSE, FASTING 78 MG/DL (60-100); POTASSIUM SERUM 4.9 MMOL/L (3.5-5.1); SODIUM LEVEL 142 MMOL/L (136-145); TOTAL PROTEIN 7.2 G/DL (5.7-8.2)
[2024-02-17 15:07] LABS: % CD4+ LYMPHS 32.7 % (30.8-58.5); ABSOLUTE CD4 HELPER 883 /uL (359-1519); BASOPHILS 1 % (Not Estab.); EOSINOPHILS 2 % (Not Estab.); EOSINOPHILS ABSOLUTE 0.1 x10E3/uL (0.0-0.4); HCT 45.3 % (37.5-51.0); HGB 15.6 g/dL (13.0-17.7); LYMPHOCYTES 45 % (Not Estab.); LYMPHOCYTES ABSOLUTE 2.7 x10E3/uL (0.7-3.1); MCH 32.5 pg (26.6-33.0); MCHC 34.4 g/dL (31.5-35.7); MCV 94 fL (79-97); MONOCYTES 11 % (Not Estab.); MONOCYTES ABSOLUTE 0.6 x10E3/uL (0.1-0.9); NEUTROPHILS 41 % (Not Estab.); NEUTROPHILS ABSOLUTE 2.5 x10E3/uL (1.4-7.0); PLT 255 x10E3/uL (150-450); WBC 5.9 x10E3/uL (3.4-10.8)
[2024-02-17 17:42] LABS: HIV-1 RNA PCR QUANT 3 1.41 (NOT DETECTED)
== END ==
LOC: M PLALAB 15:57
PROVIDERS: ATTEND Internal Medicine Infectious Disease
DX: B20 Human immunodeficiency virus [HIV] disease (principal)

== ENCOUNTER → 2024-09-03 | Outpatient (CLI) | payer BC ==
[2024-09-03 18:28] LABS: PSA SCREENING 0.39 NG/ML (< 4.00)
[2024-09-03 18:29] LABS: ALBUMIN 3.9 G/DL (3.2-5.2); ALKALINE PHOSPHATASE 106 U/L (40-129); ALT/SGPT 45 U/L (7.0-40); AST/SGOT 24 U/L (<34); BILIRUBIN,TOTAL 0.3 MG/DL (0.3-1.2); BLOOD UREA NITROGEN 14 MG/DL (9-23); CALCIUM LEVEL 9.2 MG/DL (8.5-10.1); CARBON DIOXIDE LEVEL 22 MMOL/L (20-31); CHLORIDE LEVEL 107 MMOL/L (98-107); CHOLESTEROL LEVEL 137 MG/DL (<200); CREATININE FOR GFR 0.96 MG/DL (0.70-1.30); GLOMERULAR FILTRATION RATE > 60.0 (>56); GLUCOSE, FASTING 113 MG/DL (60-100); HDL CHOLESTEROL 34.2 MG/DL (>40); LDL CHOLESTEROL 63.4 MG/DL (<100); NON-HDL-C 102.8 MG/DL; POTASSIUM SERUM 4.3 MMOL/L (3.5-5.1); SODIUM LEVEL 142 MMOL/L (136-145); TOTAL PROTEIN 7.3 G/DL (5.7-8.2); TRIGLYCERIDES LEVEL 197 MG/DL (<150)
[2024-09-03 18:33] LABS: TOTAL 25(OH) VITAMIN D 36.1 NG/ML (20.0-100.0)
[2024-09-03 18:35] LABS: FREE T4 1.06 NG/DL (0.89-1.76)
[2024-09-03 19:06] LABS: HEPATITIS C VIRUS ABY INDEX 0.13 INDEX (<0.8)
[2024-09-05 12:07] LABS: % CD4+ LYMPHS 36.9 % (30.8-58.5); ABSOLUTE CD4 HELPER 1218 /uL (359-1519); BASOPHILS 1 % (Not Estab.); BASOPHILS ABSOLUTE 0.1 x10E3/uL (0.0-0.2); EOSINOPHILS 2 % (Not Estab.); EOSINOPHILS ABSOLUTE 0.2 x10E3/uL (0.0-0.4); HCT 46.1 % (37.5-51.0); HGB 15.1 g/dL (13.0-17.7); Immature Grans 0 % (Not Estab.); LYMPHOCYTES 46 % (Not Estab.); LYMPHOCYTES ABSOLUTE 3.3 x10E3/uL (0.7-3.1); MCH 30.4 pg (26.6-33.0); MCHC 32.8 g/dL (31.5-35.7); MCV 93 fL (79-97); MONOCYTES 7 % (Not Estab.); MONOCYTES ABSOLUTE 0.5 x10E3/uL (0.1-0.9); NEUTROPHILS 44 % (Not Estab.); NEUTROPHILS ABSOLUTE 3.2 x10E3/uL (1.4-7.0); PLT 306 x10E3/uL (150-450); RBC 4.96 x10E6/uL (4.14-5.80); RDW 14.2 % (11.6-15.4); WBC 7.3 x10E3/uL (3.4-10.8)
[2024-09-09 11:21] LABS: HIV-1 RNA PCR QUANT 2 NOT DETECTED copies/mL (NOT DETECTED); HIV-1 RNA PCR QUANT 3 NOT DETECTED (NOT DETECTED)
== END ==
LOC: M PLALAB 15:39
PROVIDERS: ATTEND Student in an Organized Health Care Education/Training Program
DX: Z12.5 Encounter for screening for malignant neoplasm of prostate (principal); B20 Human immunodeficiency virus [HIV] disease; E03.9 Hypothyroidism, unspecified; E55.9 Vitamin D deficiency, unspecified; E78.2 Mixed hyperlipidemia
CPT/HCPCS: 36415; 80053; 80061; 82306; 84439; 84443; 86361; 86803; 87536; G0103

== ENCOUNTER → 2024-09-03 | Outpatient (REF) | payer BC | LOC: M SFHCPLAZ 15:37 | PROVIDERS: ATTEND Physician Assistant Medical | DX: Z53.9 Procedure and treatment not carried out, unspecified reason (principal) ==

== ENCOUNTER → 2025-01-15 | Outpatient (CLI) | payer BC ==
[2025-01-15 19:22] LABS: ALT/SGPT 49.0 U/L (7.0-40); AST/SGOT 34.0 U/L (<34); CALCIUM LEVEL 9.6 MG/DL (8.5-10.1); CARBON DIOXIDE LEVEL 29.0 MMOL/L (20-31); CHLORIDE LEVEL 103.0 MMOL/L (98-107); CREATININE FOR GFR 1.09 MG/DL (0.70-1.30); GLOMERULAR FILTRATION RATE 79.2 (>56); POTASSIUM SERUM 4.9 MMOL/L (3.5-5.1); SODIUM LEVEL 143.0 MMOL/L (136-145)
[2025-01-18 14:21] LABS: HIV-1 RNA PCR QUANT 2 152 copies/mL (NOT DETECTED); HIV-1 RNA PCR QUANT 3 2.18 (NOT DETECTED)
[2025-01-18 16:13] LABS: % CD4 24 % (30-61); %CD8 36 % (12-42); ABSOLUTE CD4 CELLS 703 cells/uL (490-1740); ABSOLUTE CD8 CELLS 1036 cells/uL (180-1170); ABSOLUTE LYMPHOCYTES 2902 cells/uL (850-3900); CD4 CD8 RATIO 0.68 (0.86-5.00)
== END ==
LOC: M PLALAB 16:06
PROVIDERS: ATTEND Internal Medicine Infectious Disease
DX: B20 Human immunodeficiency virus [HIV] disease (principal); R06.09 Other forms of dyspnea

== ENCOUNTER → 2025-05-25 | Outpatient (CLI) | payer BC | LOC: M CARPUL 12:51 | PROVIDERS: ATTEND Nurse Practitioner Family | DX: J45.21 Mild intermittent asthma with (acute) exacerbation (principal) ==

== ENCOUNTER → 2025-06-16 | Outpatient (REF) | payer BC | LOC: M SFHCPLAZ 16:55 | PROVIDERS: ATTEND Internal Medicine Infectious Disease | DX: A49.02 Methicillin resistant Staphylococcus aureus infection, unspecified site (principal) ==